=== PATIENT | female | born 1935 | race Caucasian/White ===

== ENCOUNTER 2018-07-02 17:15 | Emergency (ER) | payer OTHER | END 2018-07-02 18:57 | disposition home or self-care (01) | LOC: JER 17:15 ==

== ENCOUNTER 2018-07-08 17:32 | Emergency (ER) | payer OTHER | END 2018-07-08 19:16 | disposition home or self-care (01) | LOC: JER 17:32 ==

== ENCOUNTER 2018-07-15 19:21 | Emergency (ER) | payer OTHER | END 2018-07-15 20:35 | disposition home or self-care (01) | LOC: JER 19:21 ==

== ENCOUNTER 2018-07-21 14:48 | Emergency (ER) | payer OTHER | END 2018-07-21 15:28 | disposition home or self-care (01) | LOC: JERFT 14:48 ==

== ENCOUNTER 2021-02-20 07:08 | Emergency (ER) | payer OTHER ==
[2021-02-20 07:43] VITALS: BMI 24.5
[2021-02-20] MEDS ORDERED: ACETAMINOPHEN 1000 MG/100 ML BAG IVPB ONE (07:43)
[2021-02-20 08:58] LABS: BASO % 0.7 % (0-2.0); EOS % 0.2 % (0-4.5); HEMATOCRIT 40.9 % (32.4-45.2); LYMPH % 7.5 % (8-40); MCH 25.3 pg (25.7-33.7); MCHC 31.7 g/dl (32.0-36.0); MEAN CELL VOLUME 79.8 fl (80-96); MEAN PLT VOLUME 8.8 fl (7.5-11.1); MONO % 9.9 % (3.8-10.2); NEUT % 81.7 % (42.8-82.8); PLATELET COUNT 367 10^3/uL (134-434); RBC 5.13 M/mm3 (3.60-5.2); RDW 16.1 % (11.6-15.6); WHITE BLOOD COUNT 7.4 K/mm3 (4.0-10.0)
[2021-02-20 09:07] LABS: INR 1.21 (0.83-1.09)
[2021-02-20 09:10] LABS: ACTIVATED PTT 32.4 SECONDS (25.2-36.5)
[2021-02-20 09:20] LABS: CALCIUM 9.3 mg/dL (8.5-10.1)
[2021-02-20 09:21] LABS: ALBUMIN 3.5 g/dl (3.4-5.0); BLOOD UREA NITROGEN 16.8 mg/dL (7-18)
[2021-02-20 09:24] LABS: CREATININE 0.6 mg/dL (0.55-1.3)
[2021-02-20 09:25] LABS: TOT PROT 7.3 g/dl (6.4-8.2)
[2021-02-20 09:26] LABS: BILIRUBIN,TOTAL 0.6 mg/dL (0.2-1)
[2021-02-20] MEDS ORDERED: ACETAMINOPHEN 325 MG TABLET (FP) ONE (09:41)
[2021-02-20] MEDS ORDERED: DIPHTH,PERTUSS(ACELL),TET 0.5 ML DISP.SYRIN IM ONE ×2 (09:57→10:14)
[2021-02-20] MEDS ORDERED: POTASSIUM CHLORIDE ORAL LIQUID 20 MEQ/15 ML PO ONE (10:47)
[2021-02-20] MEDS ORDERED: POTASSIUM CHLORIDE ORAL LIQUID 20 MEQ/15 ML ONE (12:09)
[2021-02-20 12:15] VITALS: BP 189/81; PULSE 59; TEMP 97.9
== END 2021-02-20 13:56 | disposition home or self-care (01) ==
LOC: JER 07:08
PROC: 3E0333Z Introduction of Anti-inflammatory into Peripheral Vein, Percutaneous Approach (ICD-10-PCS; principal; 2021-02-20)
PROC: 3E0234Z Introduction of Serum, Toxoid and Vaccine into Muscle, Percutaneous Approach (ICD-10-PCS; 2021-02-20)
PROC: 0HQ0XZZ Repair Scalp Skin, External Approach (ICD-10-PCS; 2021-02-20)
DX: S01.91XA Laceration without foreign body of unspecified part of head, initial encounter (principal); W01.0XXA Fall on same level from slipping, tripping and stumbling without subsequent striking against object, initial encounter
CPT/HCPCS: 12001; 36415; 70450-TC; 71045-TC-FY; 71250-TC; 72125-TC; 73562-TC-LT-FY; 73562-TC-RT-FY; 80053; 82550; 84484; 85025; 85610; 85730; 86850; 86900; 86901; 90471; 90715; 93005; 93010; 96374; 99285-25; J0131